=== PATIENT | male | born 1945 | race Caucasian/White ===

== ENCOUNTER 2019-09-24 19:33 | Inpatient (IN) ==
[2019-09-24] MEDS ORDERED: cefTRIAXone 1,000 MG in SODIUM CHLORIDE 0.9% 100 ML IV STA (21:29)
[2019-09-24] MEDS ORDERED: IBUPROFEN 600 MG TABLET PO STA (21:29)
[2019-09-24 21:37] LABS: Basophils % 0.4 % (0.0-0.8); Eosinophils % 0.2 % (0.00-10.9); Hematocrit 44.8 VOL% (42.0-52.0); Hemoglobin 14.7 GM/DL (14.0-18.0); Immature Granulocytes % 0.6 %; Immature Granulocytes Absolute 0.07 #; Lymphocytes % 8.9 % (21.2-54.2); Mean Corpuscular HGB Conc 32.8 GM/DL (32-36); Mean Corpuscular Volume 91.6 FL (87-102); Mean Platelet Volume 10.8 FL (9.6-12.0); Monocytes % 9.9 % (1.7-12.7); Platelet Count 186 T/CUMM (130-400); Red Blood Count 4.89 MC/CUMM (3.8-5.5); Red Cell Distribution Width 13.4 % (9.3-17.3)
[2019-09-24 21:41] LABS: INR 1.1; PT Patient Result 11.5 SECS (9.6-12.2)
[2019-09-24 21:54] LABS: Albumin 3.5 G/DL (3.4-5.0); Bilirubin,Total 1.8 MG/DL (0.2-1.0); Calcium 8.7 MG/DL (8.5-10.1); Total Protein 6.8 G/DL (6.4-8.3)
[2019-09-24 21:55] LABS: Troponin I < 0.015 NG/ML (0.00-0.045)
[2019-09-24 22:42] LABS: Apearance,Urine CLOUDY (Clear); Bacteria,Urine Many /HPF (Few); Bilirubin,Urine Negative (Negative); Blood, Urine Moderate mg/dL (Negative); Glucose,Urine (UA) Negative (Negative); Ketones,Urine Negative (Negative); Mucus,Urine Many /LPF (Occasional); Nitrite,Urine Positive (Negative); Protein,Urine 100 MG/DL; RBC,Urine 199 /HPF (0-4); Urine Color Amber (Yellow); Urine Specific Gravity 1.021 (1.001-1.035); WBC,Urine 1938 /HPF (0-6)
[2019-09-25] MEDS ORDERED: ENOXAPARIN 40 MG/0.4 ML SYRINGE SUBCUT SCH (00:30)
[2019-09-25 05:50] LABS: Basophils # 0.1 10*3/uL (0.0-0.2); Basophils % 0.5 % (0.0-0.8); Eosinophils # 0.1 10*3/uL (0.0-0.87); Eosinophils % 1.3 % (0.00-10.9); Hematocrit 44.1 VOL% (42.0-52.0); Hemoglobin 14.3 GM/DL (14.0-18.0); Immature Granulocytes % 0.3 %; Immature Granulocytes Absolute 0.03 #; Lymphocytes # 0.7 10*3/uL (1.4-4.0); Lymphocytes % 6.6 % (21.2-54.2); Mean Corpuscular HGB Conc 32.4 GM/DL (32-36); Mean Corpuscular Volume 93.2 FL (87-102); Mean Platelet Volume 10.6 FL (9.6-12.0); Neutrophils % 78.3 % (38.7-73.9); Platelet Count 155 T/CUMM (130-400); Red Blood Count 4.73 MC/CUMM (3.8-5.5); Red Cell Distribution Width 13.6 % (9.3-17.3); White Blood Count 10.3 T/CUMM (4-12)
[2019-09-25 07:22] LABS: Albumin 3.1 G/DL (3.4-5.0); Calcium 8.6 MG/DL (8.5-10.1); Osmolality,Calculated 278.5 MOS/KG (273-304)
[2019-09-25] MEDS: PANTOPRAZOLE 40 MG TABLET PO SCH (09:32)
[2019-09-25] MEDS: PHENAZOPYRIDINE 95 MG TABLET PO PRN ×2 (09:32→20:21)
[2019-09-25] MEDS: METHENAMINE HIPPURATE 1 GM TABLET PO SCH ×2 (09:33→20:21)
[2019-09-25] MEDS ORDERED: MAGNESIUM SULF RIDER 2 GM in PREMIX 1 EACH IV PRN (11:11)
[2019-09-25] MEDS ORDERED: BISACODYL 5 MG TABLET PO ONE (12:00)
[2019-09-25] MEDS: ACETAMINOPHEN 325 MG TABLET PO PRN ×2 (13:39→17:37)
[2019-09-25] MEDS: CEFEPIME 1,000 MG in SODIUM CHLORIDE 0.9% 100 ML IV SCH ×2 (17:33→23:43)
[2019-09-25] MEDS ORDERED: POLYETHYLENE GLYCOL POWDER 255 GM BOTTLE PO ONE (18:00)
[2019-09-25] MEDS: DOXAZOSIN 4 MG TABLET PO SCH (20:21)
[2019-09-25] MEDS ORDERED: ASPIRIN CHEW 81 MG TABLET PO ONE (20:52)
[2019-09-25] MEDS ORDERED: ENOXAPARIN 60 MG/0.6 ML SYRINGE SUBCUT ONE (20:53)
[2019-09-25] MEDS ORDERED: ENOXAPARIN 40 MG/0.4 ML SYRINGE SUBCUT ONE (20:56)
[2019-09-25] MEDS ORDERED: cefTRIAXone 1,000 MG in SYRINGE 1 EACH IV SCH (21:00)
[2019-09-25] MEDS ORDERED: MAGNESIUM CITRATE 300 ML BOTTLE PO ONE (21:00)
[2019-09-25] MEDS ORDERED: SODIUM CHLORIDE 0.9% 1,000 ML IV SCH (22:00)
[2019-09-26] MEDS: CEFEPIME 1,000 MG in SODIUM CHLORIDE 0.9% 100 ML IV SCH ×4 (05:35→23:49)
[2019-09-26 06:08] LABS: Basophils % 0.6 % (0.0-0.8); Eosinophils # 0.2 10*3/uL (0.0-0.87); Eosinophils % 2.1 % (0.00-10.9); Hemoglobin 13.9 GM/DL (14.0-18.0); Immature Granulocytes % 0.6 %; Immature Granulocytes Absolute 0.04 #; Lymphocytes # 0.7 10*3/uL (1.4-4.0); Lymphocytes % 10.1 % (21.2-54.2); Mean Corpuscular HGB Conc 33.1 GM/DL (32-36); Mean Corpuscular Volume 90.7 FL (87-102); Mean Platelet Volume 11.5 FL (9.6-12.0); Monocytes % 12.7 % (1.7-12.7); Neutrophils % 73.9 % (38.7-73.9); Platelet Count 158 T/CUMM (130-400); Red Blood Count 4.63 MC/CUMM (3.8-5.5); Red Cell Distribution Width 13.5 % (9.3-17.3); White Blood Count 7.3 T/CUMM (4-12)
[2019-09-26 06:15] LABS: PT Patient Result 11.3 SECS (9.6-12.2)
[2019-09-26 06:22] LABS: Calcium 8.4 MG/DL (8.5-10.1); Osmolality,Calculated 276.7 MOS/KG (273-304)
[2019-09-26] MEDS ORDERED: diphenhydrAMINE CAP 25 MG CAPSULE PO ONE (08:00)
[2019-09-26] MEDS ORDERED: DIAZEPAM 5 MG TABLET PO ONE (08:00)
[2019-09-26] MEDS ORDERED: LIDOCAINE 1% 20 ML VIAL ONE (08:18)
[2019-09-26] MEDS ORDERED: MIDAZOLAM 2 MG/2 ML VIAL ONE (08:31)
[2019-09-26] MEDS ORDERED: fentaNYL 100 MCG/2 ML VIAL ONE (08:31)
[2019-09-26] MEDS ORDERED: ETOMIDATE 20 MG/10 ML VIAL IV ONE (09:00)
[2019-09-26] MEDS ORDERED: propofoL 200 MG/20 ML VIAL IV ONE (09:00)
[2019-09-26] MEDS ORDERED: LIDOCAINE 100 MG/5 ML SYRINGE ONE (09:00)
[2019-09-26] MEDS ORDERED: SODIUM CHLORIDE 0.9% 1,000 ML IV SCH (10:00)
[2019-09-26] MEDS: METHENAMINE HIPPURATE 1 GM TABLET PO SCH ×2 (10:00→20:14)
[2019-09-26] MEDS: ROSUVASTATIN 20 MG TABLET PO SCH ×2 (10:15→20:14)
[2019-09-26] MEDS: LACTATED RINGERS 1,000 ML IV SCH (12:06)
[2019-09-26] MEDS ORDERED: ASPIRIN CHEW 81 MG TABLET PO ONE (12:53)
[2019-09-26] MEDS: oxyCODONE/ACETAMINOPHEN 5-325 MG TABLET PO PRN ×3 (13:10→23:53)
[2019-09-26] MEDS: PANTOPRAZOLE 40 MG TABLET PO SCH (13:11)
[2019-09-26] MEDS: BISOPROLOL 5 MG TABLET PO SCH ×2 (13:22→20:14)
[2019-09-26] MEDS: DOXAZOSIN 4 MG TABLET PO SCH (20:14)
[2019-09-27] MEDS: CEFEPIME 1,000 MG in SODIUM CHLORIDE 0.9% 100 ML IV SCH ×2 (05:52→13:04)
[2019-09-27 06:46] LABS: Basophils % 0.5 % (0.0-0.8); Eosinophils # 0.2 10*3/uL (0.0-0.87); Eosinophils % 2.8 % (0.00-10.9); Hematocrit 41.3 VOL% (42.0-52.0); Hemoglobin 13.6 GM/DL (14.0-18.0); Immature Granulocytes % 0.3 %; Immature Granulocytes Absolute 0.02 #; Lymphocytes # 0.7 10*3/uL (1.4-4.0); Lymphocytes % 10.3 % (21.2-54.2); Mean Corpuscular HGB Conc 32.9 GM/DL (32-36); Mean Corpuscular Volume 92.4 FL (87-102); Mean Platelet Volume 11.4 FL (9.6-12.0); Monocytes % 11.3 % (1.7-12.7); Neutrophils % 74.8 % (38.7-73.9); Platelet Count 168 T/CUMM (130-400); Red Blood Count 4.47 MC/CUMM (3.8-5.5); Red Cell Distribution Width 13.5 % (9.3-17.3); White Blood Count 6.4 T/CUMM (4-12)
[2019-09-27 07:15] LABS: Calcium 8.3 MG/DL (8.5-10.1); Osmolality,Calculated 274.8 MOS/KG (273-304)
[2019-09-27] MEDS: PANTOPRAZOLE 40 MG TABLET PO SCH (08:10)
[2019-09-27] MEDS: METHENAMINE HIPPURATE 1 GM TABLET PO SCH (08:10)
[2019-09-27] MEDS: BISOPROLOL 5 MG TABLET PO SCH (08:10)
[2019-09-27] MEDS: oxyCODONE/ACETAMINOPHEN 5-325 MG TABLET PO PRN (08:35)
[2019-09-27] MEDS ORDERED: ASPIRIN CHEW 81 MG TABLET PO SCH (09:00)
[2019-09-27] MEDS: LACTATED RINGERS 1,000 ML IV SCH (10:29)
[2019-09-27 11:58] VITALS: BP 107/65
== END 2019-09-27 13:45 | disposition home or self-care (01) | DRG 690 ==
LOC: N.ED 19:33 → N.EDINP 09-25 00:09 → N.5E 09-25 00:54
PROVIDERS: ADMIT Internal Medicine; ATTEND Internal Medicine
PROC: CLCCHCL (ICD-10-PCS; 2019-09-26 08:45)

== ENCOUNTER 2019-10-01 08:42 | Inpatient (IN) ==
[~2019-10-01 08:42] MED LIST: ALVIMOPAN 12 MG CAPSULE PO ONE; ERTAPENEM 1,000 MG in SODIUM CHLORIDE 0.9% 100 ML IV ONE
[2019-10-01] MEDS ORDERED: ALVIMOPAN 12 MG CAPSULE ONE (09:25)
[2019-10-01] MEDS ORDERED: ERTAPENEM 1,000 MG VIAL ONE (09:25)
[2019-10-01] MEDS: LACTATED RINGERS 1,000 ML IV SCH (09:35)
[2019-10-01] MEDS ORDERED: INDOCYANINE GREEN 25 MG VIAL IV ONE (10:14)
[2019-10-01] MEDS ORDERED: LIDOCAINE 1%/EPI INJ 20 ML VIAL ONE (10:14)
[2019-10-01] MEDS ORDERED: TISSUE ADHESIVE 1 EACH APPLICATOR TOP ONE (10:14)
[2019-10-01] MEDS ORDERED: BUPIVACAINE MPF 0.25% 30 ML VIAL ONE ×2 (10:15→10:36)
[2019-10-01] MEDS ORDERED: EPINEPHrine 1 MG/ML VIAL ONE (10:36)
[2019-10-01] MEDS ORDERED: LIDOCAINE 1% 5 ML VIAL ONE (10:36)
[2019-10-01] MEDS ORDERED: MIDAZOLAM 2 MG/2 ML VIAL ONE (10:36)
[2019-10-01] MEDS ORDERED: DEXAMETHASONE 4 MG/1 ML VIAL ONE (10:36)
[2019-10-01 15:17] LABS: Apearance,Urine Slightly Hazy (Clear); Bilirubin,Urine Negative (Negative); Blood, Urine Large mg/dL (Negative); Glucose,Urine (UA) Negative (Negative); Hyaline Casts,Urine 1 /LPF (0-3); Ketones,Urine Negative (Negative); Mucus,Urine Occasional /LPF (Occasional); Nitrite,Urine Negative (Negative); Protein,Urine Negative; RBC,Urine 42 /HPF (0-4); Squamous Epithelial Cell,Urine Occasional /HPF (0-10); Urine Color Amber (Yellow); Urine Specific Gravity 1.009 (1.001-1.035); Urine Urobilinogen < 2.0 EU/DL (0.2-1.0); WBC,Urine 113 /HPF (0-6)
[2019-10-01] MEDS ORDERED: ONDANSETRON 4 MG/2 ML VIAL IV PRN ×2 (16:22→16:47)
[2019-10-01] MEDS ORDERED: fentaNYL 100 MCG/2 ML VIAL ONE (16:34)
[2019-10-01] MEDS ORDERED: ETOMIDATE 40 MG/20 ML VIAL IV ONE (16:34)
[2019-10-01] MEDS ORDERED: DESFLURANE 1 UNIT/15 MINUTE INH ONE (16:34)
[2019-10-01] MEDS ORDERED: LIDOCAINE 2% 5 ML VIAL ONE (16:34)
[2019-10-01] MEDS ORDERED: ePHEDrine 50 MG/ML AMP ONE (16:34)
[2019-10-01] MEDS ORDERED: propofoL 200 MG/20 ML VIAL IV ONE (16:34)
[2019-10-01] MEDS ORDERED: SEVOFLURANE 1 UNIT/15 MINUTE INH ONE (16:34)
[2019-10-01] MEDS ORDERED: GLYCOPYRROLATE 0.4 MG/2 ML VIAL ONE (16:35)
[2019-10-01] MEDS ORDERED: PHENYLEPHRINE 1 MG/10 ML SYRINGE IV ONE (16:35)
[2019-10-01] MEDS ORDERED: LACTATED RINGERS 1,000 ML IV ONE (16:35)
[2019-10-01] MEDS ORDERED: ROCURONIUM 100 MG/10 ML VIAL IV ONE (16:35)
[2019-10-01] MEDS ORDERED: NEOSTIGMINE 10 MG/10 ML VIAL ONE (16:35)
[2019-10-01] MEDS ORDERED: HYDROmorphone 2 MG/1 ML VIAL ONE (16:47)
[2019-10-01] MEDS: HYDROmorphone 2 MG/1 ML VIAL IV PRN ×2 (16:49→16:57)
[2019-10-01] MEDS ORDERED: NITROGLYCERIN SL 0.4 MG TABLET SL PRN (16:56)
[2019-10-01 17:43] LABS: Hematocrit 41.3 VOL% (42.0-52.0); Hemoglobin 13.4 GM/DL (14.0-18.0)
[2019-10-01] MEDS: DEXTROSE 5% LACTATED RINGERS 1,000 ML IV SCH (18:11)
[2019-10-01] MEDS: OXYBUTYNIN XL 10 MG TABLET PO SCH (19:16)
[2019-10-01] MEDS: ROSUVASTATIN 10 MG TABLET PO SCH (21:40)
[2019-10-01] MEDS: BISOPROLOL 5 MG TABLET PO SCH (21:40)
[2019-10-01] MEDS: cefOXitin 2,000 MG in SYRINGE 1 EACH IV SCH (21:41)
[2019-10-01] MEDS: SIMETHICONE CHEW 80 MG TABLET PO PRN (21:42)
[2019-10-01] MEDS: MORPHINE 4 MG/1 ML VIAL IV PRN (22:43)
[2019-10-02] MEDS: DEXTROSE 5% LACTATED RINGERS 1,000 ML IV SCH ×4 (00:31→21:03)
[2019-10-02 01:08] LABS: Hematocrit 39.9 VOL% (42.0-52.0); Hemoglobin 13.2 GM/DL (14.0-18.0)
[2019-10-02] MEDS: SIMETHICONE CHEW 80 MG TABLET PO PRN ×4 (03:26→19:32)
[2019-10-02] MEDS: cefOXitin 2,000 MG in SYRINGE 1 EACH IV SCH ×2 (03:27→10:34)
[2019-10-02 05:38] LABS: Basophils % 0.1 % (0.0-0.8); Hematocrit 39.5 VOL% (42.0-52.0); Hemoglobin 12.8 GM/DL (14.0-18.0); Immature Granulocytes Absolute 0.13 #; Lymphocytes # 0.6 10*3/uL (1.4-4.0); Lymphocytes % 4.7 % (21.2-54.2); Mean Corpuscular HGB Conc 32.4 GM/DL (32-36); Mean Corpuscular Volume 92.1 FL (87-102); Mean Platelet Volume 11.2 FL (9.6-12.0); Monocytes % 5.9 % (1.7-12.7); Neutrophils % 88.3 % (38.7-73.9); Platelet Count 252 T/CUMM (130-400); Red Blood Count 4.29 MC/CUMM (3.8-5.5); White Blood Count 13.5 T/CUMM (4-12)
[2019-10-02 05:56] LABS: Calcium 8.5 MG/DL (8.5-10.1); Osmolality,Calculated 278.5 MOS/KG (273-304)
[2019-10-02 06:08] LABS: Lymphocytes 1 % (20-55); Myelocytes 1 %; Segmented Neutrophils 91 % (50-85); Total Cells Counted 100
[2019-10-02 06:09] LABS: Hypochromasia Slight; Microcytosis 1+; Platelet Estimate Normal
[2019-10-02] MEDS: ASPIRIN EC 81 MG TABLET PO SCH (08:21)
[2019-10-02] MEDS: OXYBUTYNIN XL 10 MG TABLET PO SCH (08:21)
[2019-10-02] MEDS: BISOPROLOL 5 MG TABLET PO SCH ×2 (08:21→20:22)
[2019-10-02 09:28] LABS: Hematocrit 38.5 VOL% (42.0-52.0); Hemoglobin 12.7 GM/DL (14.0-18.0)
[2019-10-02] MEDS: LACTATED RINGERS 1,000 ML IV SCH (10:02)
[2019-10-02] MEDS: FLUCONAZOLE 100 MG TABLET PO SCH (10:02)
[2019-10-02] MEDS ORDERED: cefOXitin 2,000 MG in SYRINGE 1 EACH IV SCH (10:30)
[2019-10-02] MEDS: MORPHINE 4 MG/1 ML VIAL IV PRN ×2 (15:09→20:22)
[2019-10-02] MEDS: ROSUVASTATIN 10 MG TABLET PO SCH (20:22)
[2019-10-03] MEDS: DEXTROSE 5% LACTATED RINGERS 1,000 ML IV SCH ×5 (00:30→23:14)
[2019-10-03] MEDS: SIMETHICONE CHEW 80 MG TABLET PO PRN ×4 (01:03→20:58)
[2019-10-03] MEDS: MORPHINE 4 MG/1 ML VIAL IV PRN (02:32)
[2019-10-03] MEDS: ASPIRIN EC 81 MG TABLET PO SCH (09:22)
[2019-10-03] MEDS: FLUCONAZOLE 100 MG TABLET PO SCH (09:22)
[2019-10-03] MEDS: OXYBUTYNIN XL 10 MG TABLET PO SCH (09:22)
[2019-10-03] MEDS: BISOPROLOL 5 MG TABLET PO SCH ×2 (09:23→20:58)
[2019-10-03] MEDS: LACTATED RINGERS 1,000 ML IV SCH (13:56)
[2019-10-03] MEDS: ROSUVASTATIN 10 MG TABLET PO SCH (20:58)
[2019-10-04 06:28] LABS: Basophils # 0.1 10*3/uL (0.0-0.2); Basophils % 0.5 % (0.0-0.8); Eosinophils # 0.3 10*3/uL (0.0-0.87); Eosinophils % 3.4 % (0.00-10.9); Hematocrit 39.8 VOL% (42.0-52.0); Hemoglobin 13.1 GM/DL (14.0-18.0); Immature Granulocytes % 0.6 %; Immature Granulocytes Absolute 0.06 #; Lymphocytes # 1.2 10*3/uL (1.4-4.0); Lymphocytes % 12.2 % (21.2-54.2); Mean Corpuscular HGB Conc 32.9 GM/DL (32-36); Mean Corpuscular Volume 91.7 FL (87-102); Mean Platelet Volume 11.5 FL (9.6-12.0); Monocytes % 8.5 % (1.7-12.7); Neutrophils % 74.8 % (38.7-73.9); Platelet Count 242 T/CUMM (130-400); Red Blood Count 4.34 MC/CUMM (3.8-5.5); Red Cell Distribution Width 13.1 % (9.3-17.3); White Blood Count 9.5 T/CUMM (4-12)
[2019-10-04] MEDS: DEXTROSE 5% LACTATED RINGERS 1,000 ML IV SCH (06:50)
[2019-10-04 07:15] LABS: Calcium 8.4 MG/DL (8.5-10.1); Osmolality,Calculated 277.4 MOS/KG (273-304)
[2019-10-04] MEDS ORDERED: POTASSIUM CHLORIDE 20 MEQ TABLET PO ONE (08:51)
[2019-10-04] MEDS: ASPIRIN EC 81 MG TABLET PO SCH (09:11)
[2019-10-04] MEDS: BISOPROLOL 5 MG TABLET PO SCH ×2 (09:12→21:03)
[2019-10-04] MEDS: FLUCONAZOLE 100 MG TABLET PO SCH (09:12)
[2019-10-04] MEDS: SIMETHICONE CHEW 80 MG TABLET PO PRN (09:12)
[2019-10-04] MEDS: OXYBUTYNIN XL 10 MG TABLET PO SCH (09:12)
[2019-10-04] MEDS ORDERED: ENOXAPARIN 40 MG/0.4 ML SYRINGE SUBCUT SCH (11:00)
[2019-10-04] MEDS: LACTATED RINGERS 1,000 ML IV SCH (14:47)
[2019-10-04] MEDS: ROSUVASTATIN 10 MG TABLET PO SCH (21:03)
[2019-10-05 08:32] VITALS: BP 123/61
[2019-10-05] MEDS: OXYBUTYNIN XL 10 MG TABLET PO SCH (09:41)
[2019-10-05] MEDS: ASPIRIN EC 81 MG TABLET PO SCH (09:41)
[2019-10-05] MEDS: BISOPROLOL 5 MG TABLET PO SCH (09:41)
[2019-10-05] MEDS: FLUCONAZOLE 100 MG TABLET PO SCH (09:41)
== END 2019-10-05 10:57 | disposition home or self-care (01) | DRG 654 ==
LOC: N.OR 08:42 → N.SDSINP 09:14 → N.3E 17:19
PROVIDERS: ADMIT Surgery; ATTEND Surgery